=== PATIENT | female | born 1945 | race African-American/Black ===

== ENCOUNTER 2017-02-14 13:08 | Day surgery (SDC) | payer OTHER ==
[~2017-02-14] VITALS: Ht 152.4 cm; Wt 111.2 kg
[~2017-02-14 13:08] MED LIST: CALCIUM 500 MG1 EACH PO; CARVEDILOL12.5 MG PO; CORAL CALCIUM390 MG PO; DOXYCYCLINE HY100 MG PO; FOSRENOL500 MG PO; HYDRALAZINE HCL25 MG PO; LO-DOSE ASPIRIN81 M1 PO; NIFEDIPINE ER90 MG PO; NOVOLIN,HU100 UNITS/ SC; PRAVASTATIN SOD80 MG PO; RENAL CAPS SOFTG1 MG PO; SENSIPAR60 MG PO; SENSIPAR90 MG PO; SYNTHROID25 MCG PO; VITAMIN D32000 UNI1 PO
[2017-02-14 13:42] LABS: HEMATOCRIT 34.7 % (36.0-46.0); MCH 32.1 PG (29.0-34.0); MCHC 32.3 G/DL (30.0-36.0); MCV 99.4 FL (83-99); MEAN PLAT.VOLUME 10.5 uM^3 (9.5-12.4); PLATELET COUNT 170 K/uL (156-360); RBC DIS.WIDTH-CV 15.9 % (11.8-14.6); RED BLOOD COUNT 3.49 M/uL (3.80-5.20)
[2017-02-14 13:58] LABS: POINT-OF-CARE METER ID UU14174212
[2017-02-14 14:05] LABS: ANION GAP 10 MEQ/L (2-14); CHLORIDE 98 MEQ/L (99-109); GFR ESTIMATE (CALCULATED) 15 mL/min/; GLUCOSE 124 mg/dL (70-99); POTASSIUM 3.9 MEQ/L (3.7-5.4); SAMPLE HEMOLYSIS CHECK 0; SAMPLE ICTERIC CHECK 0; SAMPLE LIPEMIA CHECK 0; SODIUM 139 MEQ/L (136-147); UREA NITROGEN (BUN) 12 mg/dL (9-23)
[2017-02-14 14:17] VITALS: BP 128/58
[2017-02-14 14:39] LABS: METH RESISTANT S AUREUS PCR NEGATIVE (NEGATIVE)
[2017-02-14 14:48] LABS: PROBE CHECK PASS; SPECIMEN PROCESSING CONTROL PASS
[2017-02-14 18:51] LABS: POINT-OF-CARE METER ID UU13113675
[2017-02-14 19:00] VITALS: BP 120/58
[2017-02-14 19:20] VITALS: BP 103/54
== END 2017-02-14 19:40 | disposition home or self-care (01) ==
LOC: SDC 13:08
PROVIDERS: Surgery
PROC: 05WY07Z Revision of Autologous Tissue Substitute in Upper Vein, Open Approach (ICD-10-PCS; principal; 2017-02-14)
DX: T82.898A Other specified complication of vascular prosthetic devices, implants and grafts, initial encounter (principal); E11.22 Type 2 diabetes mellitus with diabetic chronic kidney disease; N18.5 Chronic kidney disease, stage 5; G47.30 Sleep apnea, unspecified; E07.9 Disorder of thyroid, unspecified; Z99.2 Dependence on renal dialysis; Z79.4 Long term (current) use of insulin; Z79.82 Long term (current) use of aspirin; Z88.0 Allergy status to penicillin; Z88.1 Allergy status to other antibiotic agents
CPT/HCPCS: 80048; 82948; 85027; 87641; 93005; J1644; J2720